=== PATIENT | female | born 1970 | race Caucasian/White ===

== ENCOUNTER 2017-06-13 08:50 | Outpatient (CLI) | payer BC ==
[~2017-06-13] VITALS: Ht 165.1 cm; Wt 67.4 kg
[2017-06-13] MEDS ORDERED: HYDR25TA4 PO (09:03)
[2017-06-13] MEDS ORDERED: [UNRECOGNIZED DRUG - CODE] PO (09:03)
[2017-06-13 09:06] VITALS: BP 127/81
[2017-06-13] MEDS ORDERED: IMIP50TA4 PO (09:27)
[2017-06-13 09:37] LABS: BASOPHILS % (AUTO) 0 % (0-10); EOSINOPHILS # (AUTO) 0.1 10^3/uL (0.0-0.3); EOSINOPHILS % (AUTO) 1 % (0-10); LYMPHOCYTES # (AUTO) 1.3 X 10^3 (1.0-4.0); LYMPHOCYTES % (AUTO) 21 % (12-44); MEAN CORPUSCULAR HEMOGLOBIN 29 PG (25-34); MEAN CORPUSCULAR HGB CONC 35 G/DL (32-36); MEAN CORPUSCULAR VOLUME 81 FL (80-99); MEAN PLATELET VOLUME 8.7 FL (7.4-10.4); MONOCYTES # (AUTO) 0.7 X 10^3 (0.0-1.0); MONOCYTES % (AUTO) 11 % (0-12); NEUTROPHILS # (AUTO) 4.1 X 10^3 (1.8-7.8); NEUTROPHILS % (AUTO) 67 % (42-75); PLATELET COUNT 250 10^3/uL (130-400); RED BLOOD COUNT 4.69 10^6/uL (4.35-5.85); RED CELL DISTRIBUTION WIDTH 13.6 % (10.0-14.5); WHITE BLOOD COUNT 6.2 10^3/uL (4.3-11.0)
[2017-06-15] MEDS ORDERED: DOCU-143 PO (08:54)
[2017-06-15] MEDS ORDERED: HYDR-3812 PO (08:54)
== END 2017-06-13 10:25 ==
LOC: PREOP 08:50
PROVIDERS: ATTEND Surgery
DX: Z01.812 Encounter for preprocedural laboratory examination (principal); K42.9 Umbilical hernia without obstruction or gangrene
CPT/HCPCS: 36415; 85025; 87081

== ENCOUNTER 2017-06-15 06:10 | Day surgery (SDC) | payer BC ==
[~2017-06-15] VITALS: Ht 165.1 cm; Wt 67.4 kg
[~2017-06-15 06:10] MED LIST: HYDR25TA4 PO; IMIP50TA4 PO; NS (IVPB) 50 ML ONE; [UNRECOGNIZED DRUG - CODE] PO; ceFAZolin 1,000 MG (ANCEF) VIAL ONE
[2017-06-15 06:30] VITALS: BP 133/78
[2017-06-15] MEDS ORDERED: FAMOTIDINE 20MG/2ML IV (PEPCID) IV ONE (06:30)
[2017-06-15] MEDS ORDERED: SCOPOLAMINE 1.5 MG (TRANSDERM-SCOP) PATCH TOP ONE (06:30)
[2017-06-15] MEDS ORDERED: ONDANSETRON 4 MG/2 ML (SDV) Z0FRAN IV ONE (06:30)
[2017-06-15] MEDS: LACTATED RINGERS 1,000 ML IV PRN ×2 (06:38→08:30)
[2017-06-15] MEDS ORDERED: DEXAMETHASONE PF 10 MG/ML (DECADRON) VIAL ONE (06:51)
[2017-06-15] MEDS ORDERED: ONDANSETRON 4 MG/2 ML (SDV) Z0FRAN ONE ×2 (06:51→09:16)
[2017-06-15] MEDS ORDERED: proPOfol 200 MG/20 ML (DIPRIVAN) VIAL IV ONE (06:51)
[2017-06-15] MEDS ORDERED: SEVOFLURANE (ULTANE) 15 ML INHAL SOLN ONE ×7 (06:51→09:03)
[2017-06-15] MEDS ORDERED: LIDOCAINE PF 2% 5 ML (XYLOCAINE) VIAL ONE (06:51)
[2017-06-15] MEDS ORDERED: fentaNYL INJECTION 100 MCG/2 ML AMP ONE ×3 (06:51→09:16)
[2017-06-15] MEDS ORDERED: MIDAZOLAM 2 MG/2 ML (VERSED) VIAL ONE (06:51)
[2017-06-15] MEDS ORDERED: ROCURONIUM 50 MG/5 ML (ZEMURON) VIAL IV ONE (06:51)
[2017-06-15] MEDS ORDERED: LACTATED RINGERS 1,000 ML IV ONE (06:51)
[2017-06-15] MEDS ORDERED: NEOSTIGMINE (BLOXIVERZ ) 1 MG/1ML 10 ML VIAL ONE (06:52)
[2017-06-15] MEDS ORDERED: GLYCOPYRROLATE 0.2 MG/ML (ROBINUL) 2 ML VIAL ONE (06:52)
[2017-06-15] MEDS ORDERED: ceFAZolin 1 GM/NS 50 ML IVPB IV ONE ×2 (07:00)
[2017-06-15] MEDS ORDERED: CATHETER FLUSH 10 ML SYR IV PRN (07:00)
[2017-06-15] MEDS ORDERED: LIDOCAINE 1% INJ 20 ML (XYLOCAINE) VIAL ONE (07:06)
[2017-06-15] MEDS ORDERED: BUPIVACAINE 0.5% 30 ML (SENSORCAINE) VIAL ONE (07:06)
--- NOTE | 2017-06-15 07:48 | Progress Note-Pre Operative ---
Pre-Operative Progress Note H&P Reviewed The H&P was reviewed, patient examined and no changes noted. Date Seen by Provider: Jun 15, 2017 Time Seen by Provider: 07:35 Date H&P Reviewed: Jun 15, 2017 Time H&P Reviewed: 07:35 Pre-Operative Diagnosis: umbilical hernia DARRELL ROMERO DO Jun 15, 2017 07:48
--- NOTE | 2017-06-15 08:50 | Progress Note-Post Operative ---
Post-Operative Progess Note Surgeon (s)/Quality Improvement Analyst (s) Surgeon DARRELL ROMERO DO Quality Improvement Analyst: Dr. Abreu Pre-Operative Diagnosis umbilical hernia Post-Operative Diagnosis same Procedure & Operative Findings Date of Procedure 06/15/17 Procedure Performed/Findings lap umbilical hernia repair Anesthesia Type general Estimated Blood Loss Estimated blood loss (mL): minimal Specimens/Packing Specimens Removed none DARRELL ROMERO DO Jun 15, 2017 8:50 am
[2017-06-15] MEDS ORDERED: HYDR-3812 PO (08:54)
[2017-06-15] MEDS ORDERED: DOCU-143 PO (08:54)
--- NOTE | 2017-06-15 08:56 | Discharge Inst-Simple/Standard ---
Discharge Inst-Standard Discharge Medications New, Converted or Re-Newed RX: RX on Chart Patient Instructions/Follow Up Plan of Care/Instructions/FU: 2-3 weeks Ellis Activity as Tolerated: No Discharge Diet: Regular Diet Other Inst to Patient Follow up Appt: Make appointment for 2-3 week. Instructions: No lifting greater than 10 pounds. No strenuous activity. May shower in 24 hours, no tub bath or soaking. Use incentive spirometer at home as directed. No Smoking Skin/Wound Care: May remove bandages in 48 hours. You need to leave the white strips over incision on they will fall off on their own. Symptoms to Report: Appetite Changes, Extremity Discoloration, Numbness/Tingling, Swelling Increased , Bleeding Excessive, Eyesight Changes, Pain Increased, Urine Color Change, Constipation(Persistent), Fever over 101 degree F, Pain/Pressure in chest, Urinating Difficulty, Cough Up/Vomit Blood, Heart Beat Irreg/Pounding, Pain/ Pressure in jaw, Vaginal Bleeding Increase, Cramps in feet or legs, Lightheadedness, Pain/Pressure in shoulder, Diarrhea(Persistent), Memory Changes Suddenly, Questions/Concerns, Weight gain consecutive days, Dizziness/ Fainting, Nausea/Vomiting, Shortness of Breath, Weight gain over 2 pounds If questions or concerns contact your physician Or seek help at emergency department. DARRELL ROMERO DO Jun 15, 2017 8:56 am
[2017-06-15] MEDS ORDERED: fentaNYL INJECTION 100 MCG/2 ML AMP IVP PRN (09:15)
[2017-06-15] MEDS ORDERED: ONDANSETRON 4 MG/2 ML (SDV) Z0FRAN IVP PRN (09:15)
[2017-06-15] MEDS ORDERED: MEPERIDINE (DEMEROL) INJ 50 MG/ML IVP PRN (09:15)
[2017-06-15] MEDS ORDERED: morphine INJ 10 MG/ML 1ML (SYR OR VIAL) ONE (09:16)
[2017-06-15] MEDS: morphine INJ 10 MG/ML 1ML (SYR OR VIAL) IVP PRN ×3 (09:24→09:36)
[2017-06-15 10:05] VITALS: BP 150/77
[2017-06-15] MEDS: HYDROcodone/APAP 5 MG/325 MG (LORTAB) TAB PO PRN ×2 (10:15→11:34)
[2017-06-15 10:35] VITALS: BP 145/83
[2017-06-15 11:05] VITALS: BP 126/70
[2017-06-15] MEDS ORDERED: KETOROLAC 30 MG/ML VIAL ONE (11:20)
[2017-06-15] MEDS ORDERED: HYDROcodone/APAP 5 MG/325 MG (LORTAB) TAB PO ONE (11:30)
[2017-06-15] MEDS ORDERED: KETOROLAC 30 MG/ML VIAL IVP ONE (11:30)
[2017-06-15 12:47] VITALS: BP 126/70
--- NOTE | 2017-06-16 14:11 | OPERATIVE REPORT ---
DATE OF SERVICE: 06/15/2017 PREOPERATIVE DIAGNOSIS: Umbilical hernia. POSTOPERATIVE DIAGNOSIS: Umbilical hernia. PROCEDURE: Laparoscopic umbilical hernia repair. SURGEON: Darrell Corral DO [employer] REPRESENTATIVES: Dr. Abreu, assisted in retraction, dissection and closure. ANESTHESIA: General. ESTIMATED BLOOD LOSS: Minimal. COMPLICATIONS: None. INDICATIONS: The patient is a 47-year-old female with an umbilical hernia that has been causing discomfort. She understands risks and benefits of procedure and wished to proceed with procedure. Consent was signed and on the chart. DESCRIPTION OF PROCEDURE: The patient was taken to the operating suite. She was prepped and draped in sterile fashion. Surgical pause was performed. A 5 mm incision made in the left upper quadrant. A Veress needle was inserted and pneumoperitoneum was achieved. Under direct visualization with the laparoscope, a 5 mm trocar was placed in the right upper quadrant and a 12 mm trocar was placed in the left lower quadrant. Hernia contents were dissected around and removed containing fat using graspers and Harmonic. Once reduced and contents removed, ____ 4.5 inch mesh was inserted into the abdomen and a secured tacker was then used to circumferentially place tacks around the outer perimeter of the mesh. The balloon was then removed and an inner crown was created as well giving adequate coverage and flat coverage. The 12 mm trocar was then removed and the defect was closed with 0 Vicryl. The abdomen was then desufflated, the trocars were removed. A total of 20 mL of 0.5% Marcaine and 1% lidocaine was used to anesthetize the trocar sites. The skin was then closed using 4-0 Vicryl in a subcuticular fashion. The area was then washed and dried. Mastisol and Steri-Strips were applied. Sterile bandages were applied. The patient tolerated procedure well without any complications. She was taken to recovery room in stable condition. Job ID: [id number] DocumentID: [id number] Dictated Date: 06/15/2017 09:13:07 Lens Generator Date: 06/15/2017 09:36:56 Dictated By: DARRELL CORRAL DO
== END 2017-06-15 13:10 | disposition home or self-care (01) ==
LOC: SDC 06:10
PROVIDERS: ATTEND Surgery
DX: K42.9 Umbilical hernia without obstruction or gangrene (principal); I10 Essential (primary) hypertension; Z79.899 Other long term (current) drug therapy
CPT/HCPCS: 84703; 94664

== ENCOUNTER → 2021-12-20 | Outpatient (CLI) | payer BC ==
[~2021-12-20] MED LIST changes: +ACHD5005 PO; +DOCU-143 PO; -NS (IVPB) 50 ML ONE; -ceFAZolin 1,000 MG (ANCEF) VIAL ONE
--- NOTE | 2021-12-20 17:19 | Diagnostic Imaging Report ---
INDICATION: Left knee pain. Injury. COMPARISON: None. FINDINGS: Three views of the left knee joint demonstrate no acute fracture or dislocation. No focal osseous lesions are seen. No significant joint effusion is seen. The surrounding soft tissue structures are unremarkable. There are no radiopaque foreign bodies. IMPRESSION: 1. No acute fractures or dislocations of the left knee joint. Dictated on workstation # [id number]
== END ==
LOC: RAD FS 13:30
PROVIDERS: ATTEND Nurse Practitioner
DX: S89.92XA Unspecified injury of left lower leg, initial encounter (principal); X58.XXXA Exposure to other specified factors, initial encounter
CPT/HCPCS: 73562

== ENCOUNTER → 2021-12-27 | Outpatient (CLI) | payer BC ==
--- NOTE | 2021-12-27 16:11 | Diagnostic Imaging Report ---
INDICATION: Injury four weeks ago. Pain. EXAMINATION: MRI of the left lower extremity without contrast, 12/27/2021. FINDINGS: The extensor mechanism is intact. The ACL and PCL intact. The MCL and the lateral collateral ligamentous complex intact. 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 The lateral meniscus appears intact. There is mild thinning of the cartilage within the medial and lateral joint compartments. Mild loss of cartilage over the patella is also noted. There is a small joint effusion. There is a slitlike Easton's cyst. IMPRESSION: 1. Suspected tear of the posterior horn of the medial meniscus with the lateral meniscus intact. 2. Mild degenerative changes throughout the joint. 3. Ligaments and tendons intact. Dictated by: Dictated on workstation # [id number]
== END ==
LOC: RAD 13:15
PROVIDERS: ATTEND Nurse Practitioner
DX: S83.222A Peripheral tear of medial meniscus, current injury, left knee, initial encounter (principal); M17.12 Unilateral primary osteoarthritis, left knee
CPT/HCPCS: 73721